=== PATIENT | female | born 1995 | race Caucasian/White ===

== ENCOUNTER 2023-11-15 14:54 | Emergency (ER) | payer MEDICAID ==
[2023-11-15] VITALS (16 sets, daily range): BP systolic 93–145; BP diastolic 52–97
[~2023-11-15] VITALS: Ht 160 cm; Wt 66.0 kg
[2023-11-15] MEDS ORDERED: FAMOTIDINE 10MG/ML 2ML SDV IV STA (14:57)
[2023-11-15] MEDS ORDERED: EPINEPHrine HCL 1 MG/ML AMP IM STA (14:57)
[2023-11-15] MEDS ORDERED: methylPREDNISolone SODIUM SUCC 125 MG/2 ML SDV IV STA (14:57)
[2023-11-15] MEDS ORDERED: DiphenhydrAMINE HCL 50 MG/ML SDV IV STA (14:57)
[2023-11-15] MEDS ORDERED: SODIUM CHLORIDE 0.9% 1,000 ML IV ONE (15:05)
[2023-11-15] MEDS ORDERED: DiphenhydrAMINE HCL 50 MG/ML SDV IV ONE (15:20)
[2023-11-15 15:38] LABS: BASO% 0.4 % (0-3); EOS% 2.1 % (0-8); HEMATOCRIT 34.5 % (37.0-47.0); HEMOGLOBIN 11.9 g/dl (12.0-16.0); IMMATURE GRANULOCYTES 0.2 % (0.0-5.0); LYMPH% 20.8 % (15-41); MEAN CELL VOLUME 87.8 fL CALC (80.0-100.0); MEAN CORPUSCULAR HGB 30.3 pG CALC (26.0-32.0); MEAN CORPUSCULAR HGB CONC 34.5 g/dL CAL (32.0-36.0); MONO% 5.1 % (2-13); NEUT# 8.88 thou/uL (2.00-7.15); NEUT% 71.4 % (42-76); RED BLOOD COUNT 3.93 mill/uL (4.20-5.60); RED CELL DISTRI WIDTH 12.6 % (11.5-15.5)
[2023-11-15 15:48] LABS: BILIRUBIN, TOTAL 0.3 mg/dL (0.02-1.3); CREATININE 0.5 mg/dL (0.5-1.0); TOTAL PROTEIN 7.5 g/dL (6.3-8.2)
== END 2023-11-15 17:34 | disposition home or self-care (01) ==
LOC: ED 14:54
PROVIDERS: Nurse Practitioner Family
DX: T78.1XXA Other adverse food reactions, not elsewhere classified, initial encounter (principal); R23.2 Flushing; X58.XXXA Exposure to other specified factors, initial encounter; Z91.010 Allergy to peanuts